=== PATIENT | male | born 1950 | race Caucasian/White ===

== ENCOUNTER 2024-08-05 08:51 | Outpatient (CLI) | payer OTHER ==
[~2024-08-05] VITALS: Ht 172.7 cm; Wt 76.0 kg
[2024-08-05] VITALS (7 sets, daily range): BP systolic 145–160; BP diastolic 51–73; PULSE 67–101; RESP 18; O2SAT 98–99
[2024-08-05] MEDS ORDERED: aminophylline inj. 0 ML IV ONE (09:50)
[2024-08-05] MEDS: regadenoson 0.4mg/5ml syringe IV ONE (09:52)
== END 2024-08-05 23:59 | disposition home or self-care (01) ==
LOC: NM 08:51
PROVIDERS: ATTEND Registered Nurse
DX: I25.10 Atherosclerotic heart disease of native coronary artery without angina pectoris (principal)
CPT/HCPCS: 78452; 93017; A9500; J2785; J0280